=== PATIENT | female | born 1935 | race Caucasian/White ===

== ENCOUNTER 2018-06-01 22:59 | Emergency (ER) | payer MEDICARE, OTHER ==
--- NOTE | 2018-06-01 23:16 | EDM.PDOC ---
ED HPI GENERAL MEDICAL PROBLEM - General Chief Complaint: General Stated Complaint: HYPERTENSION Time Seen by Provider: 06/01/18 23:04 Source of Information: Reports: Patient, Family, RN, RN Notes Reviewed History Limitations: Reports: No Limitations - History of Present Illness INITIAL COMMENTS - FREE TEXT/NARRATIVE: Patient presents the emergency room at [facility] with concerns of elevated blood pressure. The patient does have a history of hypertension, atrial fibrillation, which she is taking metoprolol, Lasix, potassium and Xarelto. She states earlier this evening she "was not feeling well" so her took her blood pressure. The states her blood pressure was 220/110. At that time the patient did not have a headache. She did not have any visual field disturbances. She did not feel dizzy. The patient denies any chest pain. The patient denies any nausea or vomiting. Currently, the patient states that she feels fine. The states that he did give her 1 enalapril out of his own medication for her blood pressure. The patient denies any shortness of breath. The patient states that she feels more warm than usual. Otherwise no other concerns. Onset: Today, Sudden - Related Data Allergies Allergy/AdvReac Type Severity Reaction Status Date / Time No Known Allergies Allergy Verified 06/01/18 23:11 Home Meds: Home Meds Furosemide [Lasix] 20 mg PO DAILY 06/01/18 [History] Metoprolol Tartrate 25 mg PO BID 06/01/18 [History] Potassium Chloride 10 meq PO DAILY 06/01/18 [History] Rivaroxaban [Xarelto] 20 mg PO DAILY 06/01/18 [History] ED ROS GENERAL - Review of Systems Review Of Systems: See Below Constitutional: Denies: Fever, Chills, Weakness Respiratory: Denies: Shortness of Breath, Cough Cardiovascular: Reports: Blood Pressure Problem. Denies: Chest Pain, Lightheadedness, Palpitations GI/Abdominal: Denies: Abdominal Pain, Nausea, Vomiting Skin: Reports: No Symptoms Neurological: Denies: Dizziness, Headache, Numbness, Paresthesia, Tingling ED EXAM, GENERAL - Physical Exam Exam: See Below Exam Limited By: No Limitations General Appearance: Alert, No Apparent Distress Eye Exam: Bilateral Eye: Normal Inspection, PERRL Neck: Supple Respiratory/Chest: No Respiratory Distress, Lungs Clear, Decreased Breath Sounds Cardiovascular: Normal Peripheral Pulses, Irregularly Irregular Peripheral Pulses: 2+: Radial (L), Radial (R) GI/Abdominal: Normal Bowel Sounds, Soft, Non-Tender Neurological: Alert, Oriented Skin Exam: Warm, Dry, Intact, Normal Color EKG INTERPRETATION EKG Date: 06/01/18 Time: 23:36 Rhythm: A-Fib Rate (Beats/Min): 98 [place]: Normal P-Wave: Absent QRS: Normal ST-T: Normal QT: Normal NE/PQ Interval: Absent Comparison: NA - No Prior EKG EKG Interpretation Comments: 1. Atrial Fibrillation 2. Septal [place], probably old Course - Vital Signs Last Recorded V/S: Last Vital Signs Temp 38.6 C H 06/01/18 23:05 Pulse 102 H 06/01/18 23:05 Resp 18 06/01/18 23:05 BP 140/62 06/01/18 23:05 Pulse Ox 95 06/01/18 23:05 - Orders/Labs/Meds Orders: Active Orders 24 hr Category Date Time Status EKG 12 Lead [EKG Documentation Completion] [RC] STAT Care 06/01/18 23:05 Active Chest 2V [CR] Stat Exams 06/01/18 23:04 Taken Labs: Laboratory Tests 06/01/18 06/01/18 06/01/18 Range/Units 23:25 23:25 23:25 WBC 13.7 H (4.0-10.0) x10^3/uL RBC 4.27 (4.00-5.50) x10^6/uL Hgb 13.6 (12.0-16.0) g/dL Hct 41.6 (33.0-47.0) % MCV 97.4 H (78.0-93.0) fL MCH 31.9 (26.0-32.0) pg MCHC 32.7 (32.0-36.0) g/dL RDW Coeff of Eileen 13.4 (10.0-15.0) % Plt Count 266 (130-400) x10^3/uL Add Manual Diff Yes Neutrophils % (Manual) 78 (50-80) % Band Neutrophils % 5 (0-6) % Lymphocytes % (Manual) 8 L (25-50) % Monocytes % (Manual) 7 (2-11) % Eosinophils % (Manual) 1 (0-4) % Basophils % (Manual) 1 (0-1) % Toxic Granulation 1+ slight H Platelet Estimate Adequate Giant Platelets Rare H Macrocytosis 1+ slight H Target Cells Rare Sodium 136 (136-145) mmol/L Potassium 3.9 (3.5-5.1) mmol/L Chloride 102 (98-107) mmol/L Carbon Dioxide 27 (21-32) mmol/L Anion Gap 10.9 (10-20) mmol/L BUN 20 H (7-18) mg/dL Creatinine 1.2 H (0.55-1.02) mg/dL Est Cr Clr Drug Dosing TNP Estimated GFR (MDRD) 43 Glucose 103 (74-106) mg/dL Lactic Acid 1.4 (0.4-2.0) mmol/L Calcium 8.8 (8.5-10.1) mg/dL Corrected Calcium 9.52 (8.5-10.1) mg/dL Phosphorus 3.1 (2.6-4.7) mg/dL Magnesium 1.9 (1.8-2.4) mg/dL Total Bilirubin 0.8 (0.2-1.0) mg/dL AST 13 L (15-37) U/L ALT 21 (14-59) U/L Alkaline Phosphatase 75 (46-116) U/L Creatine Kinase 41 (26-192) U/L POC Troponin I (0.00-0.08) ng/mL C-Reactive Protein 6.6 H (<=0.9) mg/dL Total Protein 7.1 (6.4-8.2) g/dL Albumin 3.1 L (3.4-5.0) g/dL Globulin 4.0 Albumin/Globulin Ratio 0.78 /11/07 Range/Units 23:31 WBC (4.0-10.0) x10^3/uL RBC (4.00-5.50) x10^6/uL Hgb (12.0-16.0) g/dL Hct (33.0-47.0) % MCV (78.0-93.0) fL MCH (26.0-32.0) pg MCHC (32.0-36.0) g/dL RDW Coeff of Eileen (10.0-15.0) % Plt Count (130-400) x10^3/uL Add Manual Diff Neutrophils % (Manual) (50-80) % Band Neutrophils % (0-6) % Lymphocytes % (Manual) (25-50) % Monocytes % (Manual) (2-11) % Eosinophils % (Manual) (0-4) % Basophils % (Manual) (0-1) % Toxic Granulation Platelet Estimate Giant Platelets Macrocytosis Target Cells Sodium (136-145) mmol/L Potassium (3.5-5.1) mmol/L Chloride (98-107) mmol/L Carbon Dioxide (21-32) mmol/L Anion Gap (10-20) mmol/L BUN (7-18) mg/dL Creatinine (0.55-1.02) mg/dL Est Cr Clr Drug Dosing Estimated GFR (MDRD) Glucose (74-106) mg/dL Lactic Acid (0.4-2.0) mmol/L Calcium (8.5-10.1) mg/dL Corrected Calcium (8.5-10.1) mg/dL Phosphorus (2.6-4.7) mg/dL Magnesium (1.8-2.4) mg/dL Total Bilirubin (0.2-1.0) mg/dL AST (15-37) U/L ALT (14-59) U/L Alkaline Phosphatase (46-116) U/L Creatine Kinase (26-192) U/L POC Troponin I 0.01 (0.00-0.08) ng/mL C-Reactive Protein (<=0.9) mg/dL Total Protein (6.4-8.2) g/dL Albumin (3.4-5.0) g/dL Globulin Albumin/Globulin Ratio - Radiology Interpretation Free Text/Narrative:: CXR: No consolidation; no CHF See scanned report in EMR Departure - Departure Time of Disposition: 00:02 Disposition: Home, Self-Care 01 Condition: Good Clinical Impression: Essential hypertension, Fever of unknown origin Atrial fibrillation Qualifiers: Atrial fibrillation type: chronic Qualified Code(s): I48.2 - Chronic atrial fibrillation - Discharge Information *PRESCRIPTION DRUG MONITORING PROGRAM REVIEWED*: Not Applicable *COPY OF PRESCRIPTION DRUG MONITORING REPORT IN PATIENT SARAH: Not Applicable Instructions: Atrial Fibrillation, Hypertension, Fever, Adult Referrals: PCP,Unobtain [Primary Care Provider] - Forms: ED Department Discharge Additional Instructions: 1. Stay well hydrated and rest 2. Continue taking your medications as usual 3. Drink LOTS of water, you are dehydrated 4. Recommend calling Dr. Dillon tomorrow and discussing your blood pressure 5. Call us with any questions - Problem List Review Problem List Initiated/Reviewed/Updated: Yes - My Orders Last 24 Hours: My Active Orders 06/01/18 23:04 Chest 2V [CR] Stat 06/01/18 23:05 EKG 12 Lead [EKG Documentation Completion] [RC] STAT - Assessment/Plan Last 24 Hours: My Active Orders 06/01/18 23:04 Chest 2V [CR] Stat 06/01/18 23:05 EKG 12 Lead [EKG Documentation Completion] [RC] STAT Assessment:: AFib - controlled HTN - stable Fever of unknown origin Plan: Patient remains hemodynamically stable. The patient's blood work does not show any clear etiology for the patient's fever. The patient's blood pressure has been controlled while in the emergency room. I will therefore not make any changes to her home medications. I do recommend that she stay well-hydrated due to a slightly elevated BUN/creatinine. I would recommend that the patient contact her primary care provider and discuss her current symptoms with them. The patient's EKG clinically correlates with the patient's medical history. The chest x-ray does not show any etiology as well. Patient will be discharged home. They're return as symptoms warrant.
[2018-06-01 23:53] LABS: ANION GAP 10.9 mmol/L (10-20); CHLORIDE,CL 102 mmol/L (98-107); SODIUM,NA 136 mmol/L (136-145)
== END 2018-06-02 00:08 | disposition home or self-care (01) ==
LOC: EDBD → VM.ED 22:59
DX: I48.2 Chronic atrial fibrillation (principal); I10 Essential (primary) hypertension; Z79.899 Other long term (current) drug therapy
CPT/HCPCS: 36415; 71046; 80053; 82550; 83605; 83735; 84100; 84484; 85025; 86140; 93005; 99283-GF; 99284